=== PATIENT | female | born 1985 | race Caucasian/White ===

== ENCOUNTER 2017-12-02 20:47 | Emergency (ER) | payer MEDICAID ==
[~2017-12-02] VITALS: Ht 162.6 cm; Wt 78.9 kg
[2017-12-02] MEDS ORDERED: NKM (20:53)
[2017-12-02] MEDS ORDERED: Albuterol ud Inhalation HHN ONE (21:15)
[2017-12-02] MEDS ORDERED: Ipratropium 0.02% Inh Soln 2.5ml UD HHN ONE (21:15)
[2017-12-02 21:18] VITALS: BP 140/79
--- NOTE | 2017-12-02 21:31 | Emergency Room Report ---
History of Present Illness General Chief Complaint: Asthma Source: Patient Present Illness HPI Patient presents with complaints of shortness of breath and asthma exacerbation She reports that her child give her a cold which she now feels is exacerbating her asthma Patient has done well with her asthma has not required to be in the hospital the past several years Denies any obvious fevers denies any neck pain or photophobia Patient has chest tightness that she contributes to the asthma denies any pleurisy denies any recent travel Allergies: Coded Allergies: PENICILLINS (Verified Allergy, Unknown, 12/02/17) Patient History Past Medical History: see triage record Pertinent Family History: none Last Menstrual Period: 2 WEEKS AGO Reviewed Nursing Documentation: PMH: Agreed; PSxH: Agreed Nursing Documentation-PMH Hx Asthma: Yes Review of Systems All Other Systems: negative except mentioned in HPI Physical Exam Vital Signs Date Time Temp Pulse Resp B/P (MAP) Pulse Ox O2 Delivery O2 Flow Rate FiO2 12/02/17 20:18 94 23 96 Room Air 21 12/02/17 20:53 98.2 138/83 98.2 Sp02 EP Interpretation: reviewed, normal General Appearance: mild distress - Appears short of breath Head: normocephalic, atraumatic Eyes: bilateral eye PERRL, bilateral eye EOMI ENT: hearing grossly normal, normal pharynx, TMs + canals normal, uvula midline Neck: full range of motion, supple, no meningismus, no bony tend Respiratory: no respiratory distress, no retraction, no accessory muscle use, wheezing - Bilaterally Cardiovascular #1: normal peripheral pulses, regular rate, rhythm, no edema, no gallop, no JVD, no murmur Gastrointestinal: normal bowel sounds, non tender, soft, no mass, no organomegaly, non-distended, no guarding, no hernia, no pulsatile mass, no rebound Genitourinary: no CVA tenderness Musculoskeletal: normal inspection Neurologic: oriented x3, responsive, 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, motor strength/ tone normal, sensory intact Psychiatric: mood/affect normal Skin: normal color, no rash, warm/dry, palpation normal Lymphatic: normal inspection, no adenopathy Medical Decision Making Diagnostic Impression: Primary Impression: Asthma attack Additional Impression: URI (upper respiratory infection) ER Course Multiple differentials considered patient does show evidence of wheezing bilaterally however saturating well no retractions x-ray imaging has not been initially obtained Patient has done significantly better after initial treatment she was provided with steroids as well On reevaluation feels well and would like to go home And she will have initial conservative outpatient trial and return with any concerns or changes Last Vital Signs Date Time Temp Pulse Resp B/P (MAP) Pulse Ox O2 Delivery O2 Flow Rate FiO2 12/02/17 21:18 98.2 87 12 140/79 100 Room Air 98.2 12/02/17 21:18 21 Status: improved Disposition: HOME, SELF-CARE Condition: Improved Scripts Prednisone* (PREDNISONE*) 20 Mg Tablet 20 MG ORAL BID, #8 TAB Prov: Caryn Richards DO 12/02/17 Albuterol Sulfate* (ALBUTEROL SULFATE MDI*) 8.5 Gm Hfa.aer.ad 2 PUFF INH Q4H PRN for cough/wheezing, #1 EA 0 Refills Prov: Caryn Richards DO 12/02/17 Additional Instructions: Patient is provided with the discharge instructions notified to follow up with primary doctor in the next 2-3 days otherwise return to the er with any worsening symptoms. Please note that this report is being documented using [employer] technology. This can lead to erroneous entry secondary to incorrect interpretation by the dictating instrument. Caryn Richards DO Dec 02, 2017 21:31
[2017-12-02] MEDS ORDERED: ALBUTEROL SULF8.5 GM INH (22:20)
[2017-12-02] MEDS ORDERED: PREDNISONE20 MG ORAL (22:20)
[2017-12-02 22:26] VITALS: BP 140/79
== END 2017-12-02 22:28 | disposition home or self-care (01) ==
LOC: EMR 21:30
DX: J45.909 Unspecified asthma, uncomplicated (principal); J06.9 Acute upper respiratory infection, unspecified
CPT/HCPCS: 81025; 94640; 94664; 99284; J7512